=== PATIENT | female | born 1975 | race Caucasian/White ===

== ENCOUNTER → 2021-11-05 11:32 | Outpatient (BNVA) | payer BC, SELFPAY | PROVIDERS: PCP Family Medicine; Visit Provider Family Medicine | DX: R53.83 Other fatigue (principal); Z13.6 Encounter for screening for cardiovascular disorders; N64.89 Other specified disorders of breast | CPT/HCPCS: 80053; 80061; 82306; 82607; 84443; 85025 ==

== ENCOUNTER 2021-11-26 09:03 | Outpatient (CLI) | payer BC, SELFPAY ==
--- NOTE | 2021-11-26 09:07 | MM_ITS ---
WS: [id number] DIAGNOSTIC BILATERAL DIGITAL BREAST TOMOSYNTHESIS MAMMOGRAPHY WITH CAD HISTORY: Prior bilateral breast biopsies, benign. No new abnormalities. COMPARISON: 03/07/2020 and 03/14/2019 TECHNIQUE: Bilateral craniocaudad, mediolateral oblique, and mediolateral views are submitted with to mosynthesis and SM. Computer aided detection utilized. Breast composition: The breasts are extremely dense, which lowers the sensitivity of mammography. Shmuel ateral breast biopsy clips are noted. No suspicious masses or calcifications are identified. No disto rtion. MM/[place] [id number] IMPRESSION: BI-RADS: 2-Benign FOLLOW UP: 1 Year Follow-up
== END 2021-11-26 09:04 | disposition home or self-care (01) ==
LOC: RAD 09:03
PROVIDERS: PCP Family Medicine; Visit Provider Family Medicine
DX: N64.9 Disorder of breast, unspecified (principal)
CPT/HCPCS: 77062

== ENCOUNTER 2023-02-10 07:40 | Outpatient (CLI) | payer BC, SELFPAY ==
--- NOTE | 2023-02-10 08:07 | MM_ITS ---
WS: [id number] Bilateral screening 3D tomosynthesis digital mammogram, 02/10/2023 Clinical Data: SCREENING Comparison: 11/26/2021, 05/20/2020, 03/07/2020 03/14/2019, 10/03/2017, 03/29/2017, 09/21/2016, 08/15/2015, 1 , 08/14/2014, 08/10/2013, 02/07/2013. Findings: The breast parenchymal pattern shows extreme density. No spiculated masses or clustered calcification s are seen. There are no secondary signs of carcinoma. There is a biopsy clip in each breast. Impression: 1. Negative bilateral mammogram unchanged. 2. Recommend annual screening mammograms. MM/[place] [id number] BIRADS: 1-Negative FOLLOW UP: 1 Year Follow-up The CAD rechecker was used.
== END 2023-02-10 07:41 | disposition home or self-care (01) ==
LOC: RAD 07:40
PROVIDERS: PCP Family Medicine; Visit Provider Family Medicine
DX: Z12.31 Encounter for screening mammogram for malignant neoplasm of breast (principal)
CPT/HCPCS: 77063; 77067

== ENCOUNTER → 2023-06-21 09:08 | Outpatient (BNVA) | payer BC, SELFPAY | PROVIDERS: PCP Family Medicine; Visit Provider Family Medicine | DX: Z13.6 Encounter for screening for cardiovascular disorders (principal); Z01.419 Encounter for gynecological examination (general) (routine) without abnormal findings | CPT/HCPCS: 80053; 80061; 84443; 85025; 88175 ==

== ENCOUNTER → 2024-03-14 09:33 | Outpatient (BNVA) | payer BC, SELFPAY | PROVIDERS: PCP Nurse Practitioner Family; Visit Provider Nurse Practitioner Family | DX: Z13.6 Encounter for screening for cardiovascular disorders (principal) | CPT/HCPCS: 80053; 80061; 84443; 85025 ==

== ENCOUNTER 2024-04-02 07:57 | Outpatient (CLI) | payer BC, SELFPAY ==
--- NOTE | 2024-04-02 08:00 | MM_ITS ---
WS: [id number] BILATERAL SCREENING DIGITAL TOMOSYNTHESIS MAMMOGRAM WITH CAD HISTORY: Z12.39 - Encounter for other screening for malignant neop... COMPARISON: 02/10/2023, 11/26/2021 Bilateral CC and MLO views with tomosynthesis and synthetic mammography submitted. Computer aided det ection analyzed. Breast composition: The breasts are extremely dense, which lowers the sensitivity of mammography. No suspicious masses, microcalcifications or architectural distortion. There are a few benign scattered calcifications. Biopsy clip superior RIGHT breast. There is an additional biopsy clip in the more ant erior LEFT breast. MM/MM [place] tomosynthesis [id number] IMPRESSION: BI-RADS: 2 - Benign FOLLOW UP: 1 Year Follow-up
== END 2024-04-02 07:58 | disposition home or self-care (01) ==
LOC: RAD 07:58
PROVIDERS: PCP Nurse Practitioner Family; Visit Provider Nurse Practitioner Family
DX: Z12.31 Encounter for screening mammogram for malignant neoplasm of breast (principal); R92.333 Mammographic heterogeneous density, bilateral breasts; R92.1 Mammographic calcification found on diagnostic imaging of breast
CPT/HCPCS: 77063; 77067

== ENCOUNTER → 2025-03-13 13:17 | Outpatient (BNVA) | payer BC, SELFPAY | PROVIDERS: PCP Nurse Practitioner Family; Visit Provider Nurse Practitioner Family | DX: Z13.6 Encounter for screening for cardiovascular disorders (principal); Z00.00 Encounter for general adult medical examination without abnormal findings | CPT/HCPCS: 80053; 80061; 84443; 85025 ==

== ENCOUNTER 2025-04-23 08:08 | Outpatient (CLI) | payer BC, SELFPAY ==
--- NOTE | 2025-04-23 08:00 | MM_ITS ---
WS: [id number] BILATERAL 3D TOMOSYNTHESIS DIGITAL SCREENING MAMMOGRAM WITH CAD CLINICAL INFORMATION: Z12.39 - Encounter for other screening for malignant neop... HISTORY: Screening mammogram. No current complaints. COMPARISON: 2023 TECHNIQUE: Bilateral CC and MLO. FINDINGS: The breast are composed of extremely dense tissue, which can limit the detection of small underlying mass lesions. No suspicious focal mass, asymmetry, calcifications, or architectural distortion. No evidence of malignancy. Biopsy clip bilateral breast. A few incidental punctate calcifications. MM/MM [facility] tomosynthesis [id number] IMPRESSION: DENSITY: The breasts are extremely dense, which lowers the sensitivity of mammo graphy. BI-RADS: 2 - Benign FOLLOW UP: 1 Year Follow-up Recommend return to annual screening mammography.
== END 2025-04-23 08:09 | disposition home or self-care (01) ==
LOC: RAD 08:10
PROVIDERS: PCP Nurse Practitioner Family; Visit Provider Nurse Practitioner Family
DX: Z12.31 Encounter for screening mammogram for malignant neoplasm of breast (principal); R92.313 Mammographic fatty tissue density, bilateral breasts; R92.1 Mammographic calcification found on diagnostic imaging of breast; Z96.89 Presence of other specified functional implants
CPT/HCPCS: 77063; 77067